=== PATIENT | female | born 1970 | race Caucasian/White ===

== ENCOUNTER 2022-07-21 10:45 | Outpatient (RCR) | payer BC, MEDICAID, SELFPAY ==
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
== END 2023-01-27 23:59 | disposition home or self-care (01) ==
PROVIDERS: PCP Family Medicine; Visit Provider Orthopaedic Surgery
DX: M77.10 Lateral epicondylitis, unspecified elbow (principal); Z51.89 Encounter for other specified aftercare
CPT/HCPCS: 97035; 97140; 97165

== ENCOUNTER 2023-11-10 09:58 | Emergency (ER) | payer BC, SELFPAY ==
[2023-11-10 10:02] VITALS: BP 189/112; PULSE 72; RESP 20; TEMP 36.3; O2SAT 99; BMI 21.5
[2023-11-10 10:30] VITALS: BP 165/98; PULSE 75; RESP 20; O2SAT 96
[2023-11-10 10:35] LABS: Basophils Absolute Auto 0.04 K/uL (0.00-0.30); Basophils Percent Auto 0.8 % (0.0-3.0); Eosinophils Absolute Auto 0.04 K/uL (0.00-0.50); Eosinophils Percent Auto 0.8 % (0.0-7.0); Hematocrit 37.4 % (33.0-51.0); Hemoglobin* 12.5 gm/dL (12.0-16.0); Immature Granulocytes Abs Auto 0.01 K/uL (0.00-0.30); Immature Granulocytes Pct Auto 0.2 %; Lymphocytes Absolute Auto 1.57 K/uL (0.90-2.90); Lymphocytes Percent Auto 31.8 % (20-44); Mean Corpuscular HGB Conc 33 gm/dL (32-36); Mean Corpuscular Hemoglobin 30 pg (26-34); Mean Corpuscular Volume 91 fL (80-100); Monocytes Percent Auto 7.7 % (0.0-11.0); Neutrophils Absolute Auto 2.89 K/uL (1.7-7.0); Neutrophils Percent Auto 58.7 % (42.0-72.0); Platelet Count* 302 K/uL (140-440); RDW Coefficient of Variation % 14.4 % (11.5-15.5); Red Blood Count 4.13 m/uL (4.00-5.20); White Blood Count* 4.93 K/uL (4.50-11.00)
[2023-11-10 10:42] LABS: Slide Review Reflex No
[2023-11-10 10:48] LABS: Chloride* 96 mmol/L (96-114)
[2023-11-10 10:49] LABS: Potassium* 4.2 mmol/L (3.6-5.1); Sodium* 136 mmol/L (135-149)
[2023-11-10 10:51] LABS: Amphetamine Screen Urine Negative (Negative); Barbiturate Screen Urine Negative (Negative); Benzodiazepines Screen Urine Negative (Negative); Cannabinoid Screen Urine Negative (Negative); Cocaine Screen Urine Negative (Negative); Methadone Screen Urine Negative (Negative); Methamphetamines Screen Urine Negative (Negative); Opiate Screen Urine Negative (Negative); Oxycodone Screen Urine Negative (Negative); Phencyclidine Screen Urine Negative (Negative); Tricyclic Antidepressant Urine Negative (Negative)
[2023-11-10 10:51] LABS: Amylase* 79 U/L (18-89); Anion Gap 7 mEq/L (7-15); Bilirubin Total* 0.4 mg/dL (0.1-1.5); Carbon Dioxide* 33 mmol/L (20-32); Creatinine* 0.5 mg/dL (0.5-1.5); Est. Creatinine Clearance* 112.36; Estimated Glomerular Filt Rate 112 ml/min; Total Protein* 8.3 g/dL (6.0-8.3)
[2023-11-10 10:52] LABS: Alanine Aminotransferase* 33 U/L (4-35); Alkaline Phosphatase* 108 U/L (40-150); Aspartate Amino Transferase* 53 U/L (12-35); Blood Urea Nitrogen* 14 mg/dL (7-30); Calcium* 9.6 mg/dL (8.4-10.6); Glucose* 103 mg/dL (60-115)
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
[2023-11-10 11:09] VITALS: BP 157/92; PULSE 68; RESP 18; TEMP 36.2; O2SAT 97
[2023-11-10] MEDS: LORazepam 1 MG TABLET PO (12:09)
== END 2023-11-10 12:17 | disposition home or self-care (01) ==
PROVIDERS: Emergency Provider Internal Medicine; PCP Family Medicine
DX: F10.129 Alcohol abuse with intoxication, unspecified (principal)
CPT/HCPCS: 36415; 80053; 80306; 82077; 82150; 85025; 99283; A9270

== ENCOUNTER 2024-04-21 21:06 | Emergency (ER) | payer BC, SELFPAY ==
[2024-04-21 21:10] VITALS: BP 145/89; PULSE 77; RESP 20; TEMP 36.7; O2SAT 99; BMI 22.3
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
[2024-04-21 21:41] VITALS: BP 135/78; PULSE 70; RESP 20; TEMP 36.7; O2SAT 99
[2024-04-21 21:42] VITALS: BP 135/78; PULSE 70; RESP 20; TEMP 36.7
== END 2024-04-21 21:43 ==
PROVIDERS: Emergency Provider Family Medicine; PCP Family Medicine
DX: F10.129 Alcohol abuse with intoxication, unspecified (principal); V43.52XA Car driver injured in collision with other type car in traffic accident, initial encounter
CPT/HCPCS: 99282; 99283; 99284